=== PATIENT | female | born 1985 | race African-American/Black ===

== ENCOUNTER 2017-04-01 18:03 | Emergency (ER) | payer BC, OTHER ==
[~2017-04-01] VITALS: Ht 160 cm; Wt 88.9 kg
--- NOTE | ~2017-04-01 | US98 ---
[facility] A Service of [facility] & [facility] RADIOLOGY TEXT RESULTS PATIENT: TESSA BARON LOCATION: CFTX : 81 UNIT #: [id number] AGE: [address]: MARTELL FARIAS APRN SEX: F ORDER DR: [id number] [facility] [address] [place], [place] [address] [id number] E MR#: [id number] Acc #: [id number] NAME: TESSA BARON : 1985 SEX: F STUDY DATE/TIME: 04/01/2017 21:05 UNIT: TX ROOM: STUDY DESCRIPTION: US Pelvic Non-OB Complete Attending Physician: Martell Farias Aprn Ordering Physician: Martell Farias Aprn Primary Care Physician: Primary Care Physician No MEDICAL IMAGING REPORT This report is preliminary unless electronic signature is present EXAM Transabdominal and transvaginal pelvic ultrasound, 04/01/2017. HISTORY 31-year-old female with bilateral pelvic pain for 2 days. Two weeks vaginal bleeding. COMPARISON None. FINDINGS Transabdominal and transvaginal scanning of the pelvis was performed. The uterus is normal in size measuring 8.9 cm from cervix to fundus. Endometrial echo complex is within expected limits for age measuring 1.5 cm in thickness. No significant fluid in the endometrial cavity. There are small areas of mixed echogenicity noted in the uterine myometrium suggesting uterine fibroids. The right ovary is not clearly visualized. Left ovary is within normal limits measuring 2.6 x 1.7 x 2.2 cm. Normal vascular flow in the left ovary. No significant free pelvic fluid. IMPRESSION 1. Multiple areas of mixed echogenicity noted in the uterine myometrium suggesting the presence of uterine fibroids. Uterus appears otherwise unremarkable. 2. Right ovary not visualized. Left ovary is within normal limits. Dictated by... Zi Santoro M.D. THIS IS AN ELECTRONICALLY VERIFIED REPORT Zi Santoro M.D. at 04/02/2017 10:55 AM ALESSANDRA/francisco ST[facility]. [facility] A Service of [facility] & [facility] RADIOLOGY TEXT RESULTS PATIENT: TESSA BARON LOCATION: [facility] : [birth year] UNIT #: [id number] AGE: [address]: MARTELL FARIAS APRN SEX: F ORDER DR: TD: 04/02/2017 10:47 JOB #: [id number] MEDICAL IMAGING REPORT Page 1 of 1 COPY
[2017-04-01 19:08] LABS: BASOPHIL% 0.7 % (0-2.5); DIFF IND NO; EOSINOPHIL% 0.8 % (0.0-7.0); HEMOGLOBIN 11.7 gm/dL (12.0-16.0); LYMPHOCYTE# 1.4 X10e3 (1.0-3.5); LYMPHOCYTE% 25.8 % (17.0-45.0); MEAN CELL VOLUME 97.4 FL (83-96); MEAN CORPUSCULAR HEMOGLOBIN 32.6 PG (28-34); MEAN CORPUSCULAR HGB CONC 33.5 g/dL (30-36); MEAN PLATELET VOLUME 8.1 FL (6.5-11.5); MONOCYTE# 0.5 X10e3 (0-1.0); MONOCYTE% 9.8 % (3.0-12.0); NEUTROPHIL# 3.4 X10e3 (1.5-7.1); NEUTROPHIL% 62.9 % (40-75); PLATELET COUNT 346 X10e3 (140-420); RED BLOOD COUNT 3.59 X10e (3.90-5.30); RED CELL DISTRIBUTION WIDTH 13.7 % (11.0-15.5); WHITE BLOOD COUNT 5.4 X10e3 (4.0-10.5)
[2017-04-01 19:27] LABS: BUN/CREATININE RATIO 12.22; CALCIUM SERUM 8.9 mg/dL (8.4-10.2); CREATININE SERUM 0.9 mg/dL (0.6-1.4); GLOM FILT RATE Estimated 97.4 mL/min (>60); POTASSIUM 3.8 mmol/L (3.5-5.1)
[2017-04-01 19:31] LABS: URINE SOURCE CLEAN CATCH
[2017-04-01 19:40] LABS: URINE APPEARANCE CLEAR; URINE BILIRUBIN NEG (NEG); URINE BLOOD 3+ (NEG); URINE COLOR YELLOW; URINE GLUCOSE NEG (NEG); URINE KETONE NEG (NEG); URINE LEUKOCYTE ESTERASE NEG (NEG); URINE NITRATE NEG (NEG); URINE PROTEIN NEG (NEG); URINE SPECIFIC GRAVITY 1.016 (1.003-1.035); URINE UROBILINOGEN 0.2 MG/DL (NEG)
[2017-04-01 19:41] LABS: BILIRUBIN, DIRECT 0.1 mg/dL (0.0-0.2); BILIRUBIN,INDIRECT 0.3 mg/dL (0.0-0.9); BILIRUBIN,TOTAL 0.4 mg/dL (0.2-2.0); PROTEIN TOTAL SERUM 7.7 g/dL (6.0-8.3)
[2017-04-01 19:42] LABS: U HYALINE CASTS AUWI 0-2 /[LPF]; URBCS1 AUWI 50-100 /[HPF] (0-2); URINE BACTERIA AUWI NEG (NEGATIVE); URINE SQUAMOUS EPITHELIAL CELL NONE SEEN /[HPF]; UWBCS1 AUWI 0-2 (0-5)
[2017-04-01 19:44] LABS: CULTURE INDICATED? NO
[2017-04-03 21:34] LABS: CHLAMYDIA TRACH Not Detected (Not Detected); N GONOR Not Detected (Not Detected)
== END 2017-04-01 23:00 | disposition home or self-care (01) ==
LOC: CFTX 18:03 → CED 18:03 → CFTX 19:16
PROVIDERS: Nurse Practitioner Family; Physician Assistant
DX: D25.9 Leiomyoma of uterus, unspecified (principal); Z98.51 Tubal ligation status
CPT/HCPCS: 36415; 76830; 76856; 80048; 80076; 81003; 83690; 84703; 85025; 87491; 87591; 87808; 87905; 99284